=== PATIENT | male | born 1935 | race Hispanic/Latino ===

== ENCOUNTER 2019-12-04 07:41 | Day surgery (SDC) | payer OTHER ==
[2019-12-04 08:41] LABS: BASOPHILS % (AUTO) 0.6 % (0.0-5.0); EOSINOPHILS % (AUTO) 1.1 % (0.0-8.0); HEMATOCRIT 26.4 % (42-54); LYMPHOCYTES % (AUTO) 14.6 % (21.0-51.0); MEAN CORPUSCULAR HEMOGLOBIN 21.4 pg (27.0-33.0); MEAN CORPUSCULAR HGB CONC 29.9 g/dL (32.0-36.0); MEAN CORPUSCULAR VOLUME 71.4 fL (79-99); MONOCYTES % (AUTO) 9.7 % (3.0-13.0); PLATELET COUNT (AUTO) 183 K/uL (130-400); RED CELL DISTRIBUTION WIDTH 18.3 % (11.0-15.5); WHITE BLOOD COUNT (AUTO) 4.7 K/uL (4.8-10.8)
[2019-12-04] MEDS ORDERED: SODIUM CHLORIDE 0.9% 1000ML 1,000 ML IV ONE (08:42)
--- NOTE | 2019-12-04 08:45 | NUR ---
pre procedure pt arrived with spouse at side in no distress. pt oriented to room and call light with in reach
--- NOTE | 2019-12-04 09:15 | NUR ---
cancellation blood transfusion cancelled due to hemoglobin of 7.9. mary rodriguez rn spoke to dr chilo bates.
[2019-12-04 09:30] VITALS: BP 122/72
--- NOTE | 2019-12-04 09:40 | NUR ---
discharge pt taken out via w/c by guilherme forte. pt in no distress and spouse at side
== END 2019-12-04 09:40 | disposition home or self-care (01) ==
LOC: DAH 07:41
PROVIDERS: ATTEND Family Medicine
DX: D64.9 Anemia, unspecified (principal)
CPT/HCPCS: 36415; 85025; 86850; 86900; 86901; 86922; A4215; A4216; A4221; A4222; A4223 ×2; A4606; A4663; J7030

== ENCOUNTER → 2019-12-30 | Outpatient (CLI) | payer OTHER | END | disposition home or self-care (01) | LOC: SHCH 12:44 | PROVIDERS: ATTEND Internal Medicine Cardiovascular Disease | DX: R07.9 Chest pain, unspecified (principal) | CPT/HCPCS: 93306 ==